=== PATIENT | male | born 1970 | race African-American/Black ===

== ENCOUNTER 2020-10-21 17:14 | Inpatient (IN) | payer OTHER ==
[~2020-10-21] VITALS: Ht 185.4 cm; Wt 79.8 kg
[2020-10-21] MEDS ORDERED: PREDNISONE 20MG TABLET PO STA (17:36)
[2020-10-21] MEDS ORDERED: ALBUTEROL (0.083%) 2.5MG/3ML NEB HHN STA (17:36)
[2020-10-21] MEDS ORDERED: IPRATROPIUM BROMIDE (0.02%) 0.5MG/2.5ML NEB HHN STA (17:36)
[2020-10-21] MEDS ORDERED: LEVOFLOXACIN 500MG PREMIX 100 ML IV ONE (19:30)
[2020-10-21 20:29] LABS: BASOPHILS % 0.2 % (0.0-2.0); HEMATOCRIT. 32.6 % (42.0-52.0); HEMOGLOBIN. 10.7 g/dL (14.0-18.0); LYMPHOCYTES % 17.1 % (20.0-50.0); MEAN CORPUSCULAR HEMOGLOBIN 25.9 pg (28.0-32.0); MEAN CORPUSCULAR VOLUME 79.1 fL (80.0-94.0); MEAN PLATELET VOLUME 8.6 fl (7.4-10.4); MONOCYTES % 3.2 % (2.0-8.0); NEUTROPHILS % 79.5 % (40.0-76.0); PLATELET 109 x1000/uL (130-400); RED BLOOD CELL COUNT 4.12 mill/uL (4.7-6.1); RED CELL DISTRIBUTION WIDTH 21.9 % (11.6-14.6)
[2020-10-21 20:44] LABS: CHLORIDE 109 mEq/L (98-107)
[2020-10-21] MEDS ORDERED: ASPIRIN 325MG EC TABLET PO ONE (21:45)
[2020-10-22] VITALS (25 sets, daily range): BP systolic 115–179; BP diastolic 59–98
[2020-10-22] MEDS ORDERED: HYDROCODONE/ACETAMINOPHEN 5/325MG TABLET PO PRN (00:15)
[2020-10-22] MEDS ORDERED: DIPHENHYDRAMINE 50MG/ML VIAL IV PRN (00:15)
[2020-10-22] MEDS ORDERED: PIPERACILLIN/TAZOBACTAM 3.375 G in DEXTROSE 5% WATER 50 ML IV SCH (00:15)
[2020-10-22] MEDS ORDERED: NA PHOS,M-B/NA PHOS,DI-BA ENEMA 118ML PR PRN (00:15)
[2020-10-22] MEDS ORDERED: LORAZEPAM 2MG/ML CPJ IV PRN (00:15)
[2020-10-22] MEDS ORDERED: IPRATROPIUM/ALBUTEROL 0.5-3(2.5)MG/3ML NEB NEB PRN (00:15)
[2020-10-22] MEDS ORDERED: ONDANSETRON HCL 4MG/2ML INJ IV PRN (00:15)
[2020-10-22] MEDS ORDERED: CLONIDINE 0.1MG TABLET PO PRN (00:15)
[2020-10-22] MEDS ORDERED: MAGNESIUM/ALUMINUM HYDROXIDE/SIMETHICONE 30ML UDC PO PRN (00:15)
[2020-10-22] MEDS ORDERED: NALOXONE HCL 0.4MG/ML VIAL IV PRN (00:30)
[2020-10-22] MEDS ORDERED: PIPERACILLIN/TAZOBACTAM 2.25G in DEXTROSE 5% WATER 50ML IV SCH (01:00)
[2020-10-22] MEDS ORDERED: IOHEXOL-350 100 ML BOTTLE ONE (01:17)
[2020-10-22] MEDS ORDERED: *PATIENT'S OWN MEDICATION STORAGE XX SCH (02:00)
[2020-10-22] MEDS ORDERED: METHYLPREDNISOLONE SOD SUCC 125 MG/2 ML VIAL IV SCH (06:00)
[2020-10-22] MEDS ORDERED: MYCO250C MT (07:59)
[2020-10-22] MEDS ORDERED: PRED-276 MT (07:59)
[2020-10-22] MEDS ORDERED: SODI650T PO (07:59)
[2020-10-22] MEDS ORDERED: TACR1CAP MT (07:59)
[2020-10-22] MEDS ORDERED: PANT40TA51 MT (07:59)
[2020-10-22] MEDS ORDERED: WARF2.5T83 MT (07:59)
[2020-10-22] MEDS ORDERED: TAMS-11 MT (07:59)
[2020-10-22] MEDS ORDERED: DEXTROSE 50% WATER 50ML SYRINGE IV PRN (08:45)
[2020-10-22] MEDS ORDERED: SODIUM POLYSTYRENE SULFONATE 15 G/60 ML BOT PO SCH (08:45)
[2020-10-22] MEDS ORDERED: ENOXAPARIN 40MG/0.4ML SYR SUBCUT SCH (09:00)
[2020-10-22] MEDS: HYDROCORTISONE SOD SUCCINATE 100 MG/2 ML VIAL IV SCH ×3 (09:14→23:45)
[2020-10-22] MEDS: PIPERACILLIN/TAZOBACTAM 2.25G in DEXTROSE 5% WATER 50ML IV SCH ×3 (09:14→21:45)
[2020-10-22] MEDS: ASPIRIN 81MG EC TABLET PO SCH (09:15)
[2020-10-22 09:48] LABS: BG BASE EXCESS -8.3 mmol/L (-2.0-2.0); BG CARBOXYHEMOGLOBIN 0.2 % (0.5-1.5); BG DEOXYHEMOGLOBIN 1.9 % (0.0-5.0); BG FRACTION INSPIRED OXYGEN 100; BG HCO3 ACT 16.8 mmol/L (22.0-26.0); BG METHEMOGLOBIN 0.5 % (0.0-1.5); BG OXYGEN SATURATION 98.1 % (92.0-98.5); BG OXYHEMOGLOBIN 97.4 % (94.0-97.0); BG PCO2 33.3 mmHg (35.0-45.0); BG PO2 137.8 mmHg (75.0-100.0); BG SAMPLE SITE RIGHT RADIAL; BG TOTAL HEMOGLOBIN 11.7 g/dL (12.0-18.0); BG VENT MODE MASK - NRB
[2020-10-22 10:58] LABS: D-DIMER 1.12 mg/L FEU (<0.50); INR 2.1; PROTHROMBIN TIME 21.7 sec (9.6-11.0)
[2020-10-22] MEDS: INSULIN LISPRO 100 UNITS/ML SUBCUT SCH ×3 (11:46→21:45)
[2020-10-22] MEDS ORDERED: BLOOD SUGAR DIAGNOSTIC STRIP TEST SCH (12:00)
[2020-10-22] MEDS ORDERED: ENOXAPARIN 60MG/0.6ML SYR SUBCUT NR (13:00)
[2020-10-22 14:38] LABS: HEPATITIS B SURFACE ANTIGEN NEGATIVE
[2020-10-22 15:08] LABS: HEPATITIS A AB IGM NEGATIVE (NEGATIVE)
[2020-10-22] MEDS: BLOOD SUGAR DIAGNOSTIC STRIP TEST SCH ×2 (17:28→21:44)
[2020-10-22 19:26] LABS: CREATINE KINASE 195 IU/L (39-308)
[2020-10-22 19:27] LABS: CREATINE KINASE MB FRACTION < 1.0 ng/mL (0.5-3.6)
[2020-10-23] VITALS: BP 113/51
[2020-10-23 00:31] LABS: CREATINE KINASE MB FRACTION 1.1 ng/mL (0.5-3.6)
[2020-10-23 04:00] VITALS: BP 120/61
[2020-10-23] MEDS: PIPERACILLIN/TAZOBACTAM 2.25G in DEXTROSE 5% WATER 50ML IV SCH ×4 (04:05→21:24)
[2020-10-23] MEDS: HYDROCORTISONE SOD SUCCINATE 100 MG/2 ML VIAL IV SCH ×4 (04:06→21:24)
[2020-10-23 06:58] LABS: BG BASE EXCESS -7.9 mmol/L (-2.0-2.0); BG CARBOXYHEMOGLOBIN 0.3 % (0.5-1.5); BG DEOXYHEMOGLOBIN 2.9 % (0.0-5.0); BG HCO3 ACT 16.7 mmol/L (22.0-26.0); BG METHEMOGLOBIN 0.5 % (0.0-1.5); BG OXYGEN SATURATION 97.1 % (92.0-98.5); BG OXYHEMOGLOBIN 96.3 % (94.0-97.0); BG PCO2 31.1 mmHg (35.0-45.0); BG PH 7.347 (7.350-7.450); BG PO2 96.4 mmHg (75.0-100.0); BG SAMPLE SITE RIGHT RADIAL; BG VENT MODE MASK - NRB
[2020-10-23 07:38] LABS: HEMATOCRIT. 34.1 % (42.0-52.0); HEMOGLOBIN. 11.2 g/dL (14.0-18.0); MEAN CORPUSCULAR HEMOGLOBIN 25.7 pg (28.0-32.0); MEAN CORPUSCULAR VOLUME 78.3 fL (80.0-94.0); MEAN PLATELET VOLUME 9.3 fl (7.4-10.4); PLATELET 124 x1000/uL (130-400); RED BLOOD CELL COUNT 4.35 mill/uL (4.7-6.1); RED CELL DISTRIBUTION WIDTH 21.3 % (11.6-14.6)
[2020-10-23 07:41] LABS: CHLORIDE 108 mEq/L (98-107)
[2020-10-23] MEDS: BLOOD SUGAR DIAGNOSTIC STRIP TEST SCH ×4 (07:47→21:25)
[2020-10-23 07:52] LABS: LDL CHOLESTEROL 24 mg/dL (5-100)
[2020-10-23 07:53] LABS: CREATINE KINASE 157 IU/L (39-308); CREATINE KINASE MB FRACTION 1.4 ng/mL (0.5-3.6); HDL CHOLESTEROL 12 mg/dL (40-59)
[2020-10-23 07:54] LABS: T4 FREE 1.08 ng/dL (0.76-1.46)
[2020-10-23 08:00] VITALS: BP 115/53
[2020-10-23] MEDS: OMEPRAZOLE 20MG CAPSULE EXTENDED RELEASE PO SCH (08:03)
[2020-10-23] MEDS: INSULIN LISPRO 100 UNITS/ML SUBCUT SCH ×4 (08:04→21:25)
[2020-10-23] MEDS ORDERED: ENOXAPARIN 30MG/0.3ML SYR SUBCUT SCH (09:00)
[2020-10-23 12:00] VITALS: BP 120/82
[2020-10-23] MEDS ORDERED: LIDOCAINE HCL/PF 1% 2ML VIAL ONE (12:00)
[2020-10-23] MEDS ORDERED: ALBUTEROL 6.7GM HFA INHALER ORI PRN (12:00)
[2020-10-23] MEDS: ASPIRIN 81MG EC TABLET PO SCH (12:02)
[2020-10-23] MEDS: ENOXAPARIN 100MG/ML SYR SUBCUT SCH (12:55)
[2020-10-23 16:00] VITALS: BP 149/68
[2020-10-23] MEDS: MORPHINE SULFATE 2 MG/ML CPJ (NOT FOR IM USE) IV PRN (17:15)
[2020-10-23 20:00] VITALS: BP 126/66
[2020-10-23 20:32] LABS: PLATELET ESTIMATE DECREASED
[2020-10-23] MEDS: ACETAMINOPHEN 325MG TABLET PO PRN (22:07)
[2020-10-24] VITALS: BP 116/59
[2020-10-24] MEDS: HYDROCORTISONE SOD SUCCINATE 100 MG/2 ML VIAL IV SCH ×3 (01:53→17:39)
[2020-10-24] MEDS: PIPERACILLIN/TAZOBACTAM 2.25G in DEXTROSE 5% WATER 50ML IV SCH ×4 (03:51→21:14)
[2020-10-24 04:00] VITALS: BP 168/76
[2020-10-24] MEDS: ACETAMINOPHEN 325MG TABLET PO PRN (06:10)
[2020-10-24] MEDS: BLOOD SUGAR DIAGNOSTIC STRIP TEST SCH ×4 (06:34→21:14)
[2020-10-24 08:00] VITALS: BP 129/69
[2020-10-24 08:04] LABS: HEMATOCRIT. 31.4 % (42.0-52.0); HEMOGLOBIN. 10.3 g/dL (14.0-18.0); MEAN CORPUSCULAR HEMOGLOBIN 25.4 pg (28.0-32.0); MEAN CORPUSCULAR VOLUME 77.2 fL (80.0-94.0); RED BLOOD CELL COUNT 4.07 mill/uL (4.7-6.1); RED CELL DISTRIBUTION WIDTH 21.7 % (11.6-14.6)
[2020-10-24] MEDS: OMEPRAZOLE 20MG CAPSULE EXTENDED RELEASE PO SCH (08:08)
[2020-10-24] MEDS: INSULIN LISPRO 100 UNITS/ML SUBCUT SCH ×4 (08:09→21:15)
[2020-10-24] MEDS: MORPHINE SULFATE 2 MG/ML CPJ (NOT FOR IM USE) IV PRN (09:57)
[2020-10-24] MEDS: ASPIRIN 81MG EC TABLET PO SCH (09:57)
[2020-10-24 11:55] LABS: PLATELET 101 x1000/uL (130-400)
[2020-10-24 11:59] LABS: NUCLEATED RED BLOOD CELLS 8 /100 WBC; PLATELET ESTIMATE SLIGHTLY DECREASED
[2020-10-24 12:00] VITALS: BP 109/70
[2020-10-24] MEDS: ENOXAPARIN 100MG/ML SYR SUBCUT SCH (13:59)
[2020-10-24 16:00] VITALS: BP 130/74
[2020-10-24 20:00] VITALS: BP 111/61
[2020-10-25] VITALS: BP 99/48
[2020-10-25] MEDS: PIPERACILLIN/TAZOBACTAM 2.25G in DEXTROSE 5% WATER 50ML IV SCH ×4 (03:13→22:32)
[2020-10-25 04:00] VITALS: BP 108/71
[2020-10-25] MEDS: BLOOD SUGAR DIAGNOSTIC STRIP TEST SCH ×4 (07:38→21:14)
[2020-10-25 08:00] VITALS: BP 111/56
[2020-10-25 08:04] LABS: PROTHROMBIN TIME 29.2 sec (9.6-11.0)
[2020-10-25] MEDS: OMEPRAZOLE 20MG CAPSULE EXTENDED RELEASE PO SCH (08:40)
[2020-10-25] MEDS: ASPIRIN 81MG EC TABLET PO SCH (08:40)
[2020-10-25] MEDS: HYDROCORTISONE SOD SUCCINATE 100 MG/2 ML VIAL IV SCH ×2 (08:40→17:44)
[2020-10-25] MEDS: MORPHINE SULFATE 2 MG/ML CPJ (NOT FOR IM USE) IV PRN (08:41)
[2020-10-25] MEDS: INSULIN LISPRO 100 UNITS/ML SUBCUT SCH ×4 (08:42→21:24)
[2020-10-25 12:00] VITALS: BP 100/53
[2020-10-25] MEDS: GUAIFENESIN 200MG/10ML SUGAR FREE UDC PO PRN ×2 (13:50→21:22)
[2020-10-25 16:00] VITALS: BP 102/61
[2020-10-25 20:00] VITALS: BP 83/50
[2020-10-25] MEDS: ACETAMINOPHEN 325MG TABLET PO PRN (21:14)
[2020-10-26] VITALS: BP 99/49
[2020-10-26] MEDS: PIPERACILLIN/TAZOBACTAM 2.25G in DEXTROSE 5% WATER 50ML IV SCH ×4 (04:08→21:16)
[2020-10-26] MEDS: OMEPRAZOLE 20MG CAPSULE EXTENDED RELEASE PO SCH (06:40)
[2020-10-26] MEDS: BLOOD SUGAR DIAGNOSTIC STRIP TEST SCH ×4 (06:40→21:16)
[2020-10-26 07:02] LABS: INR 2.9; PROTHROMBIN TIME 28.7 sec (9.6-11.0)
[2020-10-26 07:28] LABS: HEMATOCRIT. 33.8 % (42.0-52.0); MEAN CORPUSCULAR HEMOGLOBIN 25.1 pg (28.0-32.0); MEAN CORPUSCULAR VOLUME 76.8 fL (80.0-94.0); RED CELL DISTRIBUTION WIDTH 21.6 % (11.6-14.6)
[2020-10-26 08:00] VITALS: BP 99/57
[2020-10-26] MEDS: ASPIRIN 81MG EC TABLET PO SCH (09:40)
[2020-10-26] MEDS: INSULIN LISPRO 100 UNITS/ML SUBCUT SCH ×4 (09:42→21:17)
[2020-10-26 12:00] VITALS: BP 103/50
[2020-10-26 14:22] LABS: MEAN PLATELET VOLUME 7.5 fl (7.4-10.4); PLATELET 327 x1000/uL (130-400)
[2020-10-26 14:26] LABS: PLATELET ESTIMATE NORMAL
[2020-10-26 16:00] VITALS: BP 103/61
[2020-10-26 20:00] VITALS: BP 102/52
[2020-10-26] MEDS: ACETAMINOPHEN 325MG TABLET PO PRN (21:18)
[2020-10-26] MEDS: GUAIFENESIN 200MG/10ML SUGAR FREE UDC PO PRN (21:24)
[2020-10-27] VITALS: BP 107/49
[2020-10-27 04:00] VITALS: BP 134/51
[2020-10-27] MEDS: ACETAMINOPHEN 325MG TABLET PO PRN (06:15)
[2020-10-27 07:38] LABS: PROTHROMBIN TIME 29.9 sec (9.6-11.0)
[2020-10-27] MEDS: BLOOD SUGAR DIAGNOSTIC STRIP TEST SCH ×4 (07:57→21:00)
[2020-10-27 08:00] VITALS: BP 138/95
[2020-10-27 08:02] LABS: MEAN CORPUSCULAR HEMOGLOBIN 25.4 pg (28.0-32.0); MEAN CORPUSCULAR VOLUME 76.3 fL (80.0-94.0); RED BLOOD CELL COUNT 4.32 mill/uL (4.7-6.1); RED CELL DISTRIBUTION WIDTH 21.4 % (11.6-14.6)
[2020-10-27] MEDS: OMEPRAZOLE 20MG CAPSULE EXTENDED RELEASE PO SCH (08:27)
[2020-10-27] MEDS: ASPIRIN 81MG EC TABLET PO SCH (08:28)
[2020-10-27] MEDS: INSULIN LISPRO 100 UNITS/ML SUBCUT SCH ×4 (08:28→22:28)
[2020-10-27] MEDS: DEXAMETHASONE 10 MG/ML VIAL IV SCH (08:28)
[2020-10-27] MEDS ORDERED: HYDROCORTISONE SOD SUCCINATE 100 MG/2 ML VIAL IV SCH (09:00)
[2020-10-27] MEDS ORDERED: POTASSIUM CHLORIDE 20MEQ TABLET SR PO SCH (10:00)
[2020-10-27 10:45] LABS: PLATELET 86 x1000/uL (130-400)
[2020-10-27 12:00] VITALS: BP 115/58
[2020-10-27] MEDS ORDERED: PHENOL/SODIUM PHENOLATE 1.4% SRPAY 177ML MM PRN (12:15)
[2020-10-27 16:00] VITALS: BP 124/73
[2020-10-27 20:00] VITALS: BP 138/82
[2020-10-28] VITALS: BP 133/60
[2020-10-28 04:00] VITALS: BP 132/63
[2020-10-28 05:49] LABS: HEMATOCRIT. 36.2 % (42.0-52.0); HEMOGLOBIN. 12.1 g/dL (14.0-18.0); MEAN CORPUSCULAR HEMOGLOBIN 25.4 pg (28.0-32.0); RED BLOOD CELL COUNT 4.77 mill/uL (4.7-6.1); RED CELL DISTRIBUTION WIDTH 21.1 % (11.6-14.6)
[2020-10-28 05:53] LABS: INR 2.6; PROTHROMBIN TIME 25.9 sec (9.6-11.0)
[2020-10-28 08:00] VITALS: BP 125/68
[2020-10-28] MEDS: ASPIRIN 81MG EC TABLET PO SCH (08:29)
[2020-10-28] MEDS: OMEPRAZOLE 20MG CAPSULE EXTENDED RELEASE PO SCH (08:29)
[2020-10-28] MEDS: DEXAMETHASONE 10 MG/ML VIAL IV SCH (08:30)
[2020-10-28] MEDS: BLOOD SUGAR DIAGNOSTIC STRIP TEST SCH ×4 (08:31→21:31)
[2020-10-28] MEDS: INSULIN LISPRO 100 UNITS/ML SUBCUT SCH ×4 (08:31→21:27)
[2020-10-28] MEDS ORDERED: POTASSIUM CHLORIDE 20MEQ/PACKET PO NR (09:30)
[2020-10-28 10:17] LABS: NUCLEATED RED BLOOD CELLS 1 /100 WBC; PLATELET ESTIMATE DECREASED
[2020-10-28 10:18] LABS: MEAN PLATELET VOLUME 8.7 fl (7.4-10.4); PLATELET 97 x1000/uL (130-400)
[2020-10-28 11:54] VITALS: BP 124/62
[2020-10-28 16:03] VITALS: BP 115/64
[2020-10-28 20:00] VITALS: BP 109/50
[2020-10-29] VITALS: BP 116/59
[2020-10-29 04:00] VITALS: BP 132/82
[2020-10-29] MEDS: INSULIN LISPRO 100 UNITS/ML SUBCUT SCH ×4 (05:55→20:33)
[2020-10-29] MEDS: BLOOD SUGAR DIAGNOSTIC STRIP TEST SCH ×4 (05:56→20:56)
[2020-10-29 07:11] LABS: INR 1.8; PROTHROMBIN TIME 18.8 sec (9.6-11.0)
[2020-10-29 07:12] LABS: HEMATOCRIT. 33.8 % (42.0-52.0); HEMOGLOBIN. 11.3 g/dL (14.0-18.0); MEAN CORPUSCULAR HEMOGLOBIN 25.2 pg (28.0-32.0); MEAN CORPUSCULAR VOLUME 75.3 fL (80.0-94.0); MEAN PLATELET VOLUME 8.6 fl (7.4-10.4); PLATELET 101 x1000/uL (130-400); RED BLOOD CELL COUNT 4.49 mill/uL (4.7-6.1); RED CELL DISTRIBUTION WIDTH 21.9 % (11.6-14.6)
[2020-10-29 08:00] VITALS: BP 129/56
[2020-10-29] MEDS: OMEPRAZOLE 20MG CAPSULE EXTENDED RELEASE PO SCH (08:08)
[2020-10-29] MEDS: DEXAMETHASONE 10 MG/ML VIAL IV SCH (08:08)
[2020-10-29] MEDS: ASPIRIN 81MG EC TABLET PO SCH (08:08)
[2020-10-29] MEDS: ENOXAPARIN 80MG/0.8ML SYR SUBCUT SCH (10:27)
[2020-10-29 12:00] VITALS: BP 126/60
[2020-10-29 16:00] VITALS: BP 110/58
[2020-10-29 16:10] LABS: PLATELET ESTIMATE DECREASED
[2020-10-29] MEDS ORDERED: INSULIN LISPRO 100 UNITS/ML SUBCUT NR (17:45)
[2020-10-29] MEDS ORDERED: DEXTROSE 50% WATER 50ML SYRINGE IV PRN (17:45)
[2020-10-29 20:00] VITALS: BP 126/57
[2020-10-30] VITALS: BP 108/42
[2020-10-30 04:00] VITALS: BP 133/67
[2020-10-30] MEDS: INSULIN LISPRO 100 UNITS/ML SUBCUT SCH ×4 (06:22→21:27)
[2020-10-30] MEDS: BLOOD SUGAR DIAGNOSTIC STRIP TEST SCH ×4 (07:46→21:26)
[2020-10-30 08:00] VITALS: BP 124/70
[2020-10-30] MEDS: DEXAMETHASONE 10 MG/ML VIAL IV SCH (08:25)
[2020-10-30] MEDS: OMEPRAZOLE 20MG CAPSULE EXTENDED RELEASE PO SCH (08:25)
[2020-10-30] MEDS: ASPIRIN 81MG EC TABLET PO SCH (08:25)
[2020-10-30 10:23] LABS: INR 1.6; PROTHROMBIN TIME 16.2 sec (9.6-11.0)
[2020-10-30] MEDS: ENOXAPARIN 80MG/0.8ML SYR SUBCUT SCH (10:39)
[2020-10-30 12:00] VITALS: BP 128/69
[2020-10-30] MEDS: INSULIN GLARGINE UD 100 UNITS/ML SYR SUBCUT SCH ×2 (13:18→21:27)
[2020-10-30 13:54] LABS: BG BASE EXCESS -6.2 mmol/L (-2.0-2.0); BG CARBOXYHEMOGLOBIN 0.8 % (0.5-1.5); BG DEOXYHEMOGLOBIN 14.6 % (0.0-5.0); BG FRACTION INSPIRED OXYGEN 100; BG HCO3 ACT 17.6 mmol/L (22.0-26.0); BG METHEMOGLOBIN 0.1 % (0.0-1.5); BG OXYGEN SATURATION 85.3 % (92.0-98.5); BG OXYHEMOGLOBIN 84.5 % (94.0-97.0); BG PCO2 29.8 mmHg (35.0-45.0); BG PO2 52.8 mmHg (75.0-100.0); BG SAMPLE SITE RIGHT RADIAL; BG TOTAL HEMOGLOBIN 12.2 g/dL (12.0-18.0); BG VENT MODE MASK - NRB
[2020-10-30 16:00] VITALS: BP 114/64
[2020-10-30 20:00] VITALS: BP 118/56
[2020-10-31 00:23] VITALS: BP 95/53
[2020-10-31 04:00] VITALS: BP 99/65
[2020-10-31 08:00] VITALS: BP 95/59
[2020-10-31] MEDS: BLOOD SUGAR DIAGNOSTIC STRIP TEST SCH ×4 (08:00→21:15)
[2020-10-31] MEDS: OMEPRAZOLE 20MG CAPSULE EXTENDED RELEASE PO SCH (08:03)
[2020-10-31] MEDS: INSULIN LISPRO 100 UNITS/ML SUBCUT SCH ×4 (08:03→21:00)
[2020-10-31] MEDS: INSULIN GLARGINE UD 100 UNITS/ML SYR SUBCUT SCH ×2 (09:22→21:16)
[2020-10-31] MEDS: ASPIRIN 81MG EC TABLET PO SCH (09:23)
[2020-10-31] MEDS: DEXAMETHASONE 10 MG/ML VIAL IV SCH (09:23)
[2020-10-31] MEDS: DOCUSATE SODIUM 100MG CAPSULE PO PRN (09:23)
[2020-10-31 12:10] VITALS: BP 110/55
[2020-10-31 12:54] LABS: BG BASE EXCESS -0.1 mmol/L (-2.0-2.0); BG CARBOXYHEMOGLOBIN 1.5 % (0.5-1.5); BG DEOXYHEMOGLOBIN 9.9 % (0.0-5.0); BG FRACTION INSPIRED OXYGEN 100; BG HCO3 ACT 21.9 mmol/L (22.0-26.0); BG METHEMOGLOBIN 0.3 % (0.0-1.5); BG OXYGEN SATURATION 89.9 % (92.0-98.5); BG OXYHEMOGLOBIN 88.3 % (94.0-97.0); BG PCO2 28.1 mmHg (35.0-45.0); BG PH 7.509 (7.350-7.450); BG PO2 55.9 mmHg (75.0-100.0); BG SAMPLE SITE RIGHT RADIAL; BG TOTAL HEMOGLOBIN 12.4 g/dL (12.0-18.0); BG VENT MODE MASK - NRB
[2020-10-31] MEDS: ENOXAPARIN 80MG/0.8ML SYR SUBCUT SCH (13:16)
[2020-10-31] MEDS: ACETAMINOPHEN 325MG TABLET PO PRN (15:36)
[2020-10-31 16:00] VITALS: BP 89/54
[2020-10-31 20:28] VITALS: BP 91/49
[2020-11-01 00:40] VITALS: BP 114/47
[2020-11-01 04:00] VITALS: BP 130/79
[2020-11-01] MEDS: BLOOD SUGAR DIAGNOSTIC STRIP TEST SCH ×4 (06:25→21:22)
[2020-11-01] MEDS: INSULIN LISPRO 100 UNITS/ML SUBCUT SCH ×4 (06:31→21:32)
[2020-11-01 07:23] LABS: HEMATOCRIT. 35.6 % (42.0-52.0); HEMOGLOBIN. 11.8 g/dL (14.0-18.0); MEAN CORPUSCULAR HEMOGLOBIN 25.2 pg (28.0-32.0); MEAN CORPUSCULAR VOLUME 76.2 fL (80.0-94.0); RED BLOOD CELL COUNT 4.67 mill/uL (4.7-6.1); RED CELL DISTRIBUTION WIDTH 21.1 % (11.6-14.6)
[2020-11-01] MEDS: OMEPRAZOLE 20MG CAPSULE EXTENDED RELEASE PO SCH (07:57)
[2020-11-01 08:00] VITALS: BP 120/54
[2020-11-01] MEDS: DOCUSATE SODIUM 100MG CAPSULE PO PRN (08:49)
[2020-11-01] MEDS: ASPIRIN 81MG EC TABLET PO SCH (08:49)
[2020-11-01] MEDS: DEXAMETHASONE 10 MG/ML VIAL IV SCH (08:49)
[2020-11-01] MEDS: ENOXAPARIN 80MG/0.8ML SYR SUBCUT SCH (11:32)
[2020-11-01] MEDS: INSULIN GLARGINE UD 100 UNITS/ML SYR SUBCUT SCH ×2 (11:33→21:33)
[2020-11-01 12:00] VITALS: BP 109/63
[2020-11-01 13:54] LABS: NUCLEATED RED BLOOD CELLS 4 /100 WBC; PLATELET ESTIMATE NORMAL
[2020-11-01 13:55] LABS: MEAN PLATELET VOLUME 9.6 fl (7.4-10.4); PLATELET 154 x1000/uL (130-400)
[2020-11-01 16:00] VITALS: BP 109/42
[2020-11-02] VITALS: BP 128/55
[2020-11-02 04:00] VITALS: BP 114/62
[2020-11-02] MEDS: BLOOD SUGAR DIAGNOSTIC STRIP TEST SCH ×4 (06:23→21:30)
[2020-11-02] MEDS: INSULIN LISPRO 100 UNITS/ML SUBCUT SCH ×4 (06:30→21:00)
[2020-11-02 08:00] VITALS: BP 108/55
[2020-11-02] MEDS: DEXAMETHASONE 10 MG/ML VIAL IV SCH (09:00)
[2020-11-02] MEDS: ASPIRIN 81MG EC TABLET PO SCH (09:50)
[2020-11-02] MEDS: OMEPRAZOLE 20MG CAPSULE EXTENDED RELEASE PO SCH (09:50)
[2020-11-02 12:00] VITALS: BP 98/59
[2020-11-02] MEDS: INSULIN GLARGINE UD 100 UNITS/ML SYR SUBCUT SCH ×2 (14:02→22:00)
[2020-11-02 16:00] VITALS: BP 98/45
[2020-11-02 20:00] VITALS: BP_SYST 90; BP_SYST 98; BP_DIAS 43; BP_DIAS 86
[2020-11-03] VITALS: BP_SYST 117; BP_SYST 209; BP_DIAS 119; BP_DIAS 64
[2020-11-03 04:00] VITALS: BP 126/72
[2020-11-03] MEDS: OMEPRAZOLE 20MG CAPSULE EXTENDED RELEASE PO SCH (06:40)
[2020-11-03] MEDS: BLOOD SUGAR DIAGNOSTIC STRIP TEST SCH ×4 (06:40→21:17)
[2020-11-03 08:00] VITALS: BP 98/46
[2020-11-03] MEDS: INSULIN LISPRO 100 UNITS/ML SUBCUT SCH ×4 (08:10→21:43)
[2020-11-03] MEDS: DEXAMETHASONE 10 MG/ML VIAL IV SCH (09:00)
[2020-11-03] MEDS: ASPIRIN 81MG EC TABLET PO SCH (09:22)
[2020-11-03] MEDS: INSULIN GLARGINE UD 100 UNITS/ML SYR SUBCUT SCH ×2 (09:36→21:44)
[2020-11-03] MEDS: ENOXAPARIN 80MG/0.8ML SYR SUBCUT SCH (10:00)
[2020-11-03 12:00] VITALS: BP 115/50
[2020-11-03 16:00] VITALS: BP 115/50
[2020-11-03 20:00] VITALS: BP 112/52
[2020-11-04 00:36] VITALS: BP 101/48
[2020-11-04 04:00] VITALS: BP 107/53
[2020-11-04] MEDS: ACETAMINOPHEN 325MG TABLET PO PRN (04:06)
[2020-11-04 06:12] LABS: MEAN CORPUSCULAR HEMOGLOBIN 25.2 pg (28.0-32.0); MEAN CORPUSCULAR VOLUME 78.9 fL (80.0-94.0); MEAN PLATELET VOLUME 9.2 fl (7.4-10.4); PLATELET 238 x1000/uL (130-400); RED BLOOD CELL COUNT 3.56 mill/uL (4.7-6.1); RED CELL DISTRIBUTION WIDTH 21.3 % (11.6-14.6)
[2020-11-04 06:22] LABS: CHLORIDE 102 mEq/L (98-107)
[2020-11-04] MEDS: OMEPRAZOLE 20MG CAPSULE EXTENDED RELEASE PO SCH (06:32)
[2020-11-04] MEDS: INSULIN LISPRO 100 UNITS/ML SUBCUT SCH ×4 (07:15→21:23)
[2020-11-04] MEDS: BLOOD SUGAR DIAGNOSTIC STRIP TEST SCH ×4 (07:15→21:23)
[2020-11-04 08:00] VITALS: BP 101/55
[2020-11-04 08:38] LABS: C REACTIVE PROTEIN QUANT > 190.0 mg/L (0.0-3.0)
[2020-11-04 08:56] LABS: BG BASE EXCESS -4.6 mmol/L (-2.0-2.0); BG CARBOXYHEMOGLOBIN 0.8 % (0.5-1.5); BG DEOXYHEMOGLOBIN 1.2 % (0.0-5.0); BG FRACTION INSPIRED OXYGEN 100; BG HCO3 ACT 19.9 mmol/L (22.0-26.0); BG METHEMOGLOBIN 0.5 % (0.0-1.5); BG OXYGEN SATURATION 98.8 % (92.0-98.5); BG OXYHEMOGLOBIN 97.5 % (94.0-97.0); BG PCO2 33.7 mmHg (35.0-45.0); BG PH 7.388 (7.350-7.450); BG PO2 150.2 mmHg (75.0-100.0); BG SAMPLE SITE RIGHT RADIAL; BG TOTAL HEMOGLOBIN 8.4 g/dL (12.0-18.0); BG VENT MODE MASK - NRB
[2020-11-04] MEDS: ENOXAPARIN 80MG/0.8ML SYR SUBCUT SCH (09:23)
[2020-11-04] MEDS: ASPIRIN 81MG EC TABLET PO SCH (09:23)
[2020-11-04] MEDS: DEXAMETHASONE 10 MG/ML VIAL IV SCH (10:36)
[2020-11-04] MEDS: INSULIN GLARGINE UD 100 UNITS/ML SYR SUBCUT SCH ×2 (10:43→21:24)
[2020-11-04 12:00] VITALS: BP 105/56
[2020-11-04 13:42] LABS: INR 1.9; PROTHROMBIN TIME 19.6 sec (9.6-11.0)
[2020-11-04 16:00] VITALS: BP 132/61
[2020-11-04 20:00] VITALS: BP 132/64
[2020-11-04 22:51] LABS: PLATELET ESTIMATE NORMAL
[2020-11-05] VITALS: BP 120/63
[2020-11-05 05:00] VITALS: BP 116/66
[2020-11-05] MEDS: BLOOD SUGAR DIAGNOSTIC STRIP TEST SCH ×4 (05:37→21:00)
[2020-11-05 07:25] LABS: HEMATOCRIT. 24.6 % (42.0-52.0); HEMOGLOBIN. 7.9 g/dL (14.0-18.0); MEAN CORPUSCULAR HEMOGLOBIN 24.3 pg (28.0-32.0); MEAN CORPUSCULAR VOLUME 76.1 fL (80.0-94.0); MEAN PLATELET VOLUME 9.5 fl (7.4-10.4); PLATELET 267 x1000/uL (130-400); RED BLOOD CELL COUNT 3.23 mill/uL (4.7-6.1)
[2020-11-05 07:28] LABS: INR 2.1; PROTHROMBIN TIME 21.6 sec (9.6-11.0)
[2020-11-05 08:00] VITALS: BP 114/72
[2020-11-05] MEDS: OMEPRAZOLE 20MG CAPSULE EXTENDED RELEASE PO SCH (08:33)
[2020-11-05] MEDS: INSULIN LISPRO 100 UNITS/ML SUBCUT SCH ×4 (08:33→22:06)
[2020-11-05] MEDS: DEXAMETHASONE 10 MG/ML VIAL IV SCH (08:33)
[2020-11-05] MEDS: ASPIRIN 81MG EC TABLET PO SCH (08:33)
[2020-11-05] MEDS: ENOXAPARIN 80MG/0.8ML SYR SUBCUT SCH (10:27)
[2020-11-05] MEDS: INSULIN GLARGINE UD 100 UNITS/ML SYR SUBCUT SCH ×2 (10:29→22:05)
[2020-11-05 12:00] VITALS: BP 135/66
[2020-11-05 18:27] LABS: HEMATOCRIT 25.2 % (42.0-52.0); HEMOGLOBIN 8.3 g/dL (14.0-18.0)
[2020-11-05 20:00] VITALS: BP 144/71
[2020-11-05 22:14] LABS: PLATELET ESTIMATE NORMAL
[2020-11-06] VITALS (69 sets, daily range): BP systolic 70–151; BP diastolic 34–76
[2020-11-06] MEDS: BLOOD SUGAR DIAGNOSTIC STRIP TEST SCH ×4 (05:24→20:46)
[2020-11-06 06:42] LABS: HEMATOCRIT. 26.1 % (42.0-52.0); HEMOGLOBIN. 8.5 g/dL (14.0-18.0); MEAN CORPUSCULAR HEMOGLOBIN 24.9 pg (28.0-32.0); MEAN CORPUSCULAR VOLUME 76.6 fL (80.0-94.0); MEAN PLATELET VOLUME 9.4 fl (7.4-10.4); PLATELET 283 x1000/uL (130-400); RED BLOOD CELL COUNT 3.41 mill/uL (4.7-6.1); RED CELL DISTRIBUTION WIDTH 20.9 % (11.6-14.6)
[2020-11-06] MEDS: OMEPRAZOLE 20MG CAPSULE EXTENDED RELEASE PO SCH ×2 (07:40→08:04)
[2020-11-06] MEDS: DEXAMETHASONE 10 MG/ML VIAL IV SCH (08:04)
[2020-11-06] MEDS: INSULIN LISPRO 100 UNITS/ML SUBCUT SCH ×4 (08:05→20:46)
[2020-11-06] MEDS ORDERED: SODIUM CHLORIDE 0.9% 10ML VIAL ONE (08:41)
[2020-11-06] MEDS ORDERED: ETOMIDATE 2MG/ML 10ML VIAL IV ONE (08:41)
[2020-11-06] MEDS ORDERED: VECURONIUM BROMIDE 10 MG/VIAL IV ONE (08:41)
[2020-11-06] MEDS ORDERED: MIDAZOLAM HCL 100 MG in SODIUM CHLORIDE 0.9% 80 ML IV PRN (08:45)
[2020-11-06] MEDS ORDERED: FENTANYL CITRATE/PF 2,500 MCG in SODIUM CHLORIDE 0.9% 200 ML IV PRN (08:45)
[2020-11-06] MEDS: MIDODRINE HCL 5MG TABLET PO SCH ×2 (09:00→17:00)
[2020-11-06] MEDS ORDERED: IPRATROPIUM/ALBUTEROL 0.5-3(2.5)MG/3ML NEB HHN PRN (09:15)
[2020-11-06] MEDS ORDERED: SODIUM CHLORIDE 0.9% 250 ML IV ONE (09:30)
[2020-11-06] MEDS: MANNITOL 12.5G (25%) VIAL 50ML IV NR ×2 (09:30→15:18)
[2020-11-06] MEDS: PHENYLEPHRINE 100 MG in DEXT 5% WATER 240 ML IV PRN ×3 (09:46→20:09)
[2020-11-06] MEDS ORDERED: CEFEPIME 1,000 MG in DEXTROSE 5% WATER 50 ML IV SCH (10:30)
[2020-11-06 11:26] LABS: BG BASE EXCESS -12.3 mmol/L (-2.0-2.0); BG CARBOXYHEMOGLOBIN 0.6 % (0.5-1.5); BG DEOXYHEMOGLOBIN 4.6 % (0.0-5.0); BG FRACTION INSPIRED OXYGEN 100; BG HCO3 ACT 19.6 mmol/L (22.0-26.0); BG METHEMOGLOBIN 0.5 % (0.0-1.5); BG OXYGEN SATURATION 95.3 % (92.0-98.5); BG OXYHEMOGLOBIN 94.3 % (94.0-97.0); BG PCO2 86.1 mmHg (35.0-45.0); BG PH 6.975 (7.350-7.450); BG PO2 110.4 mmHg (75.0-100.0); BG SAMPLE SITE RIGHT BRACHIAL; BG TOTAL HEMOGLOBIN 9.3 g/dL (12.0-18.0); BG TOTAL RESPIRATORY RATE 24 b/min; BG VENT MODE VENT- PRVC
[2020-11-06] MEDS: NOREPINEPHRINE 32 MG in DEXT 5% WATER 218 ML IV PRN ×2 (11:34→20:09)
[2020-11-06] MEDS: IPRATROPIUM/ALBUTEROL 0.5-3(2.5)MG/3ML NEB HHN SCH ×3 (12:22→20:24)
[2020-11-06] MEDS: INSULIN GLARGINE UD 100 UNITS/ML SYR SUBCUT SCH ×2 (13:15→21:29)
[2020-11-06 13:20] LABS: INR 3.3; PROTHROMBIN TIME 32.3 sec (9.6-11.0)
[2020-11-06 14:16] LABS: BG BASE EXCESS -15.3 mmol/L (-2.0-2.0); BG CARBOXYHEMOGLOBIN 0.3 % (0.5-1.5); BG DEOXYHEMOGLOBIN 6.3 % (0.0-5.0); BG HCO3 ACT 15.6 mmol/L (22.0-26.0); BG METHEMOGLOBIN 0.1 % (0.0-1.5); BG OXYGEN SATURATION 93.7 % (92.0-98.5); BG OXYHEMOGLOBIN 93.3 % (94.0-97.0); BG PCO2 63.7 mmHg (35.0-45.0); BG PH 7.007 (7.350-7.450); BG PO2 92.9 mmHg (75.0-100.0); BG SAMPLE SITE RIGHT BRACHIAL; BG TOTAL HEMOGLOBIN 9.7 g/dL (12.0-18.0); BG VENT MODE VENT- PRVC
[2020-11-06] MEDS ORDERED: SODIUM BICARBONATE 8.4% 1 MEQ/ML 50ML SYR IV NR (15:00)
[2020-11-06 20:17] LABS: BG BASE EXCESS -23.9 mmol/L (-2.0-2.0); BG CARBOXYHEMOGLOBIN 0.3 % (0.5-1.5); BG DEOXYHEMOGLOBIN 7.4 % (0.0-5.0); BG FRACTION INSPIRED OXYGEN 100; BG HCO3 ACT 8.6 mmol/L (22.0-26.0); BG METHEMOGLOBIN 0.3 % (0.0-1.5); BG OXYGEN SATURATION 92.6 % (92.0-98.5); BG PCO2 49.3 mmHg (35.0-45.0); BG PO2 85.9 mmHg (75.0-100.0); BG SAMPLE SITE LEFT FEMORAL; BG TOTAL HEMOGLOBIN 9.2 g/dL (12.0-18.0); BG TOTAL RESPIRATORY RATE 41 b/min; BG VENT MODE VENT - PRVC
[2020-11-06] MEDS ORDERED: SODIUM BICARBONATE 8.4% 1 MEQ/ML 50ML SYR IV SCH (21:00)
[2020-11-06 22:47] LABS: PLATELET ESTIMATE NORMAL
[2020-11-07] VITALS (16 sets, daily range): BP systolic 80–116; BP diastolic 36–51
[2020-11-07] MEDS: IPRATROPIUM/ALBUTEROL 0.5-3(2.5)MG/3ML NEB HHN SCH ×2 (00:35→04:22)
[2020-11-07] MEDS: PHENYLEPHRINE 100 MG in DEXT 5% WATER 240 ML IV PRN (03:30)
[2020-11-07] MEDS ORDERED: DOPAMINE 400MG/250ML PREMIX 250 ML IV PRN (04:30)
[2020-11-07] MEDS ORDERED: DEXTROSE 50% WATER 50ML SYRINGE IV ONE ×2 (04:46→11:23)
[2020-11-07] MEDS ORDERED: CEFEPIME 1,000 MG in DEXTROSE 5% WATER 50 ML IV SCH (09:00)
[2020-11-07] MEDS ORDERED: EPINEPHRINE 0.1MG/ML (1:10,000) 10ML SYR ONE (11:23)
[2020-11-07] MEDS ORDERED: SODIUM BICARBONATE 8.4% 1 MEQ/ML 50ML SYR IV ONE (11:23)
== END 2020-11-07 04:39 | DRG 871 ==
LOC: ER 17:14 → MICUSO 22:00 → ENRESERV 23:27 → 7WST 10-22 15:41 → MICUSO 11-06 09:14
PROVIDERS: ADMIT Internal Medicine; ATTEND Internal Medicine
PROC: 5A09357 Assistance with Respiratory Ventilation, Less than 24 Consecutive Hours, Continuous Positive Airway Pressure (ICD-10-PCS; principal; 2020-10-21)
PROC: 5A1D70Z Performance of Urinary Filtration, Intermittent, Less than 6 Hours Per Day (ICD-10-PCS; 2020-10-23)
PROC: 5A1D70Z Performance of Urinary Filtration, Intermittent, Less than 6 Hours Per Day (ICD-10-PCS; 2020-10-25)
PROC: 5A1D70Z Performance of Urinary Filtration, Intermittent, Less than 6 Hours Per Day (ICD-10-PCS; 2020-10-27)
PROC: 5A1D70Z Performance of Urinary Filtration, Intermittent, Less than 6 Hours Per Day (ICD-10-PCS; 2020-10-31)
PROC: 5A1D70Z Performance of Urinary Filtration, Intermittent, Less than 6 Hours Per Day (ICD-10-PCS; 2020-11-03)
PROC: 5A1935Z Respiratory Ventilation, Less than 24 Consecutive Hours (ICD-10-PCS; 2020-11-06)
PROC: 0BH17EZ Insertion of Endotracheal Airway into Trachea, Via Natural or Artificial Opening (ICD-10-PCS; 2020-11-06)
PROC: 5A1D70Z Performance of Urinary Filtration, Intermittent, Less than 6 Hours Per Day (ICD-10-PCS; 2020-11-06)
PROC: 5A12012 Performance of Cardiac Output, Single, Manual (ICD-10-PCS; 2020-11-07)
DX: A41.89 Other specified sepsis (principal); U07.1 COVID-19; I21.4 Non-ST elevation (NSTEMI) myocardial infarction; J12.82 Pneumonia due to coronavirus disease 2019; J96.01 Acute respiratory failure with hypoxia; G93.41 Metabolic encephalopathy; N18.6 End stage renal disease; D84.9 Immunodeficiency, unspecified; E44.0 Moderate protein-calorie malnutrition; N17.9 Acute kidney failure, unspecified; I48.19 Other persistent atrial fibrillation; I48.92 Unspecified atrial flutter; E87.2 Acidosis; T86.19 Other complication of kidney transplant; I13.0 Hypertensive heart and chronic kidney disease with heart failure and stage 1 through stage 4 chronic kidney disease, or unspecified chronic kidney disease; D68.69 Other thrombophilia; Z94.0 Kidney transplant status; D64.9 Anemia, unspecified; E11.22 Type 2 diabetes mellitus with diabetic chronic kidney disease; E11.51 Type 2 diabetes mellitus with diabetic peripheral angiopathy without gangrene; E87.5 Hyperkalemia; I25.10 Atherosclerotic heart disease of native coronary artery without angina pectoris; I50.9 Heart failure, unspecified; D69.6 Thrombocytopenia, unspecified; R65.20 Severe sepsis without septic shock; I46.9 Cardiac arrest, cause unspecified; Y83.0 Surgical operation with transplant of whole organ as the cause of abnormal reaction of the patient, or of later complication, without mention of misadventure at the time of the procedure; Y92.89 Other specified places as the place of occurrence of the external cause; Z79.899 Other long term (current) drug therapy; Z79.01 Long term (current) use of anticoagulants; Z89.431 Acquired absence of right foot; Z89.422 Acquired absence of other left toe(s); Z99.2 Dependence on renal dialysis; Z68.23 Body mass index [BMI] 23.0-23.9, adult
CPT/HCPCS: 31500; 36415; 36600; 71045; 71275; 80048; 80053; 80061; 82270; 82375; 82550; 82553; 82805; 82962; 83036; 83540; 83550; 83735; 83880; 84439; 84443; 84484; 85014; 85018; 85025; 85379; 86140; 86705; 86709; 86803; 87077; 87186; 87340; 87426; 93005; 93970; 94002; 94640; 94660; 99285; A6261; J0692; J1100; J1650; J1720; J1815; J1956; J2150; J2250; J2270; J2370; J2543; J2930; J3490; J7040; J7050; J7060; J7512; Q9967; U0003; U0005